=== PATIENT | male | born 1970 | race Caucasian/White ===

== ENCOUNTER 2016-10-27 13:22 | Emergency (ER) | payer OTHER ==
--- NOTE | ~2016-10-27 | CR7 ---
[facility] A Service [facility] RADIOLOGY TEXT RESULTS PATIENT: WILFRED TAYLOR LOCATION: SED : 66 UNIT #: [id number] AGE: [address]: Ander Munoz MD SEX: M ORDER DR: [id number] [address] [address] [id number] E MR#: [id number] Acc #: [id number] NAME: WILFRED TAYLOR : 1970 SEX: M STUDY DATE/TIME: 10/27/2016 13:56 UNIT: SED ROOM: STUDY DESCRIPTION: CR Abdomen Single AP View Attending Physician: Ander Munoz M.D. Ordering Physician: Ander Munoz M.D. Primary Care Physician: No Primary Care Physician MEDICAL IMAGING REPORT This report is preliminary unless electronic signature is present. FINDINGS Frontal abdomen 10/27/2016. INDICATIONS 45-year-old male with flank pain on the left. Symptoms began 2 hours ago. History of kidney stones. TECHNIQUE Frontal abdomen was performed. COMPARISON No comparisons FINDINGS There is a nonspecific calcification measuring about 5 mm in the region of the lower pole left kidney/left renal pelvis. No other suspicious calcifications identified. Bowel gas pattern non obstructed and nonspecific. IMPRESSION 1. Nonspecific 5 mm calcification on the left. This is in the region of the lower pole left kidney or the left renal pelvis. The examination is otherwise negative. Dictated by... Ander Ceja M.D. THIS IS AN ELECTRONICALLY VERIFIED REPORT Ander Ceja M.D. at 10/27/2016 5:24 PM JLY/shahrzad TD: 10/27/2016 16:04 [facility] A Service [facility] RADIOLOGY TEXT RESULTS PATIENT: WILFRED TAYLOR LOCATION: SED : 66 UNIT #: [id number] AGE: [address]: Ander Munoz MD SEX: M ORDER DR: JOB #: [id number] MEDICAL IMAGING REPORT Page 1 of 1
[~2016-10-27 13:22] MED LIST: KEFLEX500 M1 PO; NO MEDICATIONS; VOLTAREN50 MG PO
[2016-10-27] MEDS ORDERED: ALPRAZOLAM PO (13:25)
[2016-10-27 14:10] LABS: URINE SOURCE CLEAN CATCH
[2016-10-27 14:13] LABS: URINE APPEARANCE CLEAR; URINE BILIRUBIN NEG (NEG); URINE BLOOD 2+ (NEG); URINE COLOR YELLOW; URINE GLUCOSE NEG (NORM); URINE KETONE NEG (NEG); URINE LEUKOCYTE ESTERASE NEG (NEG); URINE NITRATE NEG (NEG); URINE PROTEIN NEG (NEG); URINE SPECIFIC GRAVITY 1.015 (1.003-1.035); URINE UROBILINOGEN 0.2 MG/DL (NORM)
[2016-10-27 14:17] LABS: MICRO INDICATED? YES
[2016-10-27 14:32] LABS: URINE RBC 25-50 /[HPF] (0-2)
[2016-10-27 14:33] LABS: CULTURE INDICATED? NO; URINE BACTERIA NEG (NEG); URINE WBC 0-2 /[HPF] (0-5)
== END 2016-10-27 15:20 | disposition home or self-care (01) ==
LOC: SED 13:22
PROVIDERS: Emergency Medicine
DX: N20.1 Calculus of ureter (principal); F41.9 Anxiety disorder, unspecified; Z98.890 Other specified postprocedural states; Z88.5 Allergy status to narcotic agent; Z88.8 Allergy status to other drugs, medicaments and biological substances
CPT/HCPCS: 74000; 81003; 96361; 96374; 96375; 99284; J1170; J1885; J2405

== ENCOUNTER 2016-11-04 12:33 | Emergency (ER) | payer OTHER ==
--- NOTE | ~2016-11-04 | CT4 ---
[facility] A Service of [facility] RADIOLOGY TEXT RESULTS PATIENT: WILFRED TAYLOR LOCATION: SED : 66 UNIT #: [id number] AGE: [address]: Michael Shook MD SEX: M ORDER DR: [id number] [address] [address] [id number] E MR#: [id number] Acc #: [id number] NAME: WILFRED TAYLOR : 1970 SEX: M STUDY DATE/TIME: 11/04/2016 UNIT: SED ROOM: STUDY DESCRIPTION: CT Abd and Pelv Wo Cont Attending Physician: Michael Shook M.D. Ordering Physician: Michael Shook M.D. Primary Care Physician: Primary Care Physician No MEDICAL IMAGING REPORT This report is preliminary unless electronic signature is present. EXAM CT abdomen pelvis without contrast 11/04/2016 13:16 hours CLINICAL HISTORY 45-year-old man with complaint of lower abdominal pain radiating to left groin since last night. Nausea since last night. History of kidney stones. COMPARISON Abdominal film 10/27/2016 TECHNIQUE Helical noncontrasted images were obtained from the lung bases through the pubic symphysis. Sagittal and coronal reconstructions were performed. Total exam DLP 1909 mGy-cm. The CT exam was performed with one or more of the following radiation dose reduction techniques: automatic exposure control, adjustment of mA and/or kV according to patient size, and iterative reconstruction. FINDINGS Images through the lung bases demonstrate clear lungs. There is no pleural fluid. Distal esophagus is normal. Noncontrasted images through the abdomen demonstrate a normal appearance to the liver, spleen, pancreas, gallbladder, bile ducts and adrenal glands. The right kidney is normal. The left kidney demonstrates moderate pelvocaliectasis and upper ureterectasis to the level of the L5-S1 disc space where there is a 5 mm stone in the ureter. This projects distal to the calcification seen on plain films 10/27/2016 which projected just inferior to the left L3 transverse process suggesting the stone has migrated distally in the [facility] A Service of [facility] RADIOLOGY TEXT RESULTS PATIENT: WILFRED TAYLOR LOCATION: SED : 66 UNIT #: [id number] AGE: [address]: Michael Shook MD SEX: M ORDER DR: stephanie. The distal ureters are normal and the bladder appears normal. There are calcifications in the prostate. The stomach is contracted and unopacified but appears normal. Small bowel appears normal. The appendix is normal. There is no colonic wall thickening. IMPRESSION 1. There is a 5 mm stone in the left ureter resulting in moderate pelvocaliectasis and ureterectasis. The stone is lodged in the ureter at the level of the L5-S1 disc space. This is called to the calcifications seen on recent abdominal film 10/27/2016 which projected just inferior to the left L3 transverse process suggesting distal progression since 10/27/2016. No intrarenal stones are seen. 2. Normal appendix. Dictated by... Sneha Chatman M.D. THIS IS AN ELECTRONICALLY VERIFIED REPORT Sneha Chatman M.D. at 11/04/2016 2:29 PM HUNTER/rosita TD: 11/04/2016 13:53 JOB #: [id number] MEDICAL IMAGING REPORT Page 1 of 1
[~2016-11-04 12:33] MED LIST changes: +ALPRAZOLAM PO
[2016-11-04] MEDS ORDERED: ULTRAM (12:36)
[2016-11-04] MEDS ORDERED: PHENERGAN (12:36)
[2016-11-04] MEDS ORDERED: DICLOFENAC (12:36)
[2016-11-04 13:21] LABS: URINE SOURCE CLEAN CATCH
[2016-11-04 13:23] LABS: BASOPHIL# 0.1 X10e3 (0-0.3); BASOPHIL% 0.4 % (0-2.5); EOSINOPHIL% 0.2 % (0.0-7.0); HEMATOCRIT 51.8 % (38.0-50.0); HEMOGLOBIN 17.7 gm/dL (13.0-16.0); LYMPHOCYTE# 2.1 X10e3 (1.0-3.5); LYMPHOCYTE% 16.1 % (17.0-45.0); MEAN CELL VOLUME 86.3 FL (83-96); MEAN CORPUSCULAR HEMOGLOBIN 29.6 PG (28-34); MEAN CORPUSCULAR HGB CONC 34.3 g/dL (30-36); MEAN PLATELET VOLUME 7.4 FL (6.5-11.5); MONOCYTE# 1.1 X10e3 (0-1.0); MONOCYTE% 8.9 % (3.0-12.0); NEUTROPHIL# 9.5 X10e3 (1.5-7.1); NEUTROPHIL% 74.4 % (40-75); PLATELET COUNT 311 X10e3 (140-420); RED CELL DISTRIBUTION WIDTH 13.2 % (11.0-15.5); WHITE BLOOD COUNT 12.8 X10e3 (4.0-10.5)
[2016-11-04 13:26] LABS: URINE APPEARANCE CLEAR; URINE BILIRUBIN NEG (NEG); URINE BLOOD 3+ (NEG); URINE COLOR YELLOW; URINE GLUCOSE NEG (NORM); URINE KETONE 1+ (NEG); URINE LEUKOCYTE ESTERASE NEG (NEG); URINE NITRATE NEG (NEG); URINE PROTEIN TRACE (NEG); URINE SPECIFIC GRAVITY >=1.030 (1.003-1.035)
[2016-11-04 13:27] LABS: DIFF IND NO
[2016-11-04 13:28] LABS: MICRO INDICATED? YES
[2016-11-04 13:34] LABS: URINE BACTERIA NEG (NEG); URINE MUCUS PRESENT; URINE SQUAMOUS EPITHELIAL CELL OCCAS /[HPF]
[2016-11-04 13:42] LABS: BUN/CREATININE RATIO 11.57; CALCIUM SERUM 9.3 mg/dL (8.4-10.2); CREATININE SERUM 1.9 mg/dL (0.6-1.4); GLOM FILT RATE Estimated 41.1 mL/min (>60); POTASSIUM 3.6 mmol/L (3.5-5.1)
== END 2016-11-04 14:40 | disposition home or self-care (01) ==
LOC: SED 12:33
PROVIDERS: Emergency Medicine
DX: N20.1 Calculus of ureter (principal); F41.9 Anxiety disorder, unspecified; Z88.8 Allergy status to other drugs, medicaments and biological substances
CPT/HCPCS: 36415; 74176; 80048; 81003; 85025; 96374; 96375; 99284; J2270; J2405